=== PATIENT | female | born 1940 | race Caucasian/White ===

== ENCOUNTER 2017-12-27 11:59 | Outpatient (CLI) | payer OTHER | END 2017-12-27 12:35 | disposition home or self-care (01) | LOC: MAMO-SONO 11:59 | DX: Z12.31 Encounter for screening mammogram for malignant neoplasm of breast (principal); Z87.898 Personal history of other specified conditions; N60.11 Diffuse cystic mastopathy of right breast ==

== ENCOUNTER 2021-02-15 12:38 | Outpatient (CLI) | payer OTHER | END 2021-02-15 12:49 | disposition home or self-care (01) | LOC: MAMO-SONO 12:38 | PROVIDERS: ATTEND Obstetrics & Gynecology | DX: Z12.31 Encounter for screening mammogram for malignant neoplasm of breast (principal); Z87.898 Personal history of other specified conditions; N60.11 Diffuse cystic mastopathy of right breast ==

== ENCOUNTER 2022-12-18 14:21 | Outpatient (CLI) | payer OTHER | END 2022-12-18 14:35 | disposition home or self-care (01) | LOC: RAD 14:21 | PROVIDERS: ATTEND Obstetrics & Gynecology Gynecology | DX: Z00.00 Encounter for general adult medical examination without abnormal findings (principal); Z12.31 Encounter for screening mammogram for malignant neoplasm of breast ==

== ENCOUNTER 2024-01-13 09:52 | Outpatient (CLI) | payer OTHER | END 2024-01-13 10:01 | disposition home or self-care (01) | LOC: TOM 09:52 | PROVIDERS: ATTEND Internal Medicine Gastroenterology | DX: R19.5 Other fecal abnormalities (principal) ==